=== PATIENT | male | born 1940 | race Caucasian/White ===

== ENCOUNTER 2018-08-12 13:04 | Inpatient (IN) | payer MEDICARE, OTHER ==
[~2018-08-12] VITALS: Ht 167.6 cm; Wt 65.3 kg
[2018-08-12 14:45] LABS: Hematocrit 19.9 % (41.0-53.0); Mean Corpuscular Hemoglobin 33.7 pg (28.0-32.0); Mean Corpuscular Volume 108.6 fL (80.0-100.0); Platelet Count (auto) 97 10^3/uL (140-450); Red Blood Cells 1.83 10^6/uL (4.5-5.90); White Blood Cell 2.8 10^3/uL (4.4-10.8)
[2018-08-12 14:52] LABS: Red Cell Distribution Width 22.6 % (11.8-14.3)
[2018-08-12 14:55] LABS: Hemoglobin 6.2 g/dL (13.5-17.5)
[2018-08-12 14:57] LABS: Basophils % (manual) 0 (0.0-2.0); Blast Cells 0; Eosinophils % (manual) 0 (0-7); Metamyelocytes % 0; Myelocytes % 0; Promyelocytes % 0; Reactive Lymphocytes 0
[2018-08-12 15:04] LABS: Chloride 103 mmol/L (98-107); Potassium 3.4 mmol/L (3.5-5.1); Sodium 136 mmol/L (136-145)
[2018-08-12 15:07] LABS: Albumin 3.2 g/dL (3.4-5.0); Anion Gap 14 (5-15); BUN/Creatinine Ratio 24.3; Blood Urea Nitrogen 26 mg/dL (7-18); Calcium 7.8 mg/dL (8.5-10.1); Carbon Dioxide 19 mmol/L (21-32); GFR African American 86 mL/min; GFR Non-African American 71 mL/min; Glucose 106 mg/dL (74-106)
[2018-08-12 15:22] LABS: Alanine Aminotransferase 248 U/L (16-61); Alkaline Phosphatase 128 U/L (45-117); Aspartate Aminotransferase 198 U/L (15-37); Bilirubin, Total 1.1 mg/dL (0.2-1.0); Total Protein 6.8 g/dL (6.4-8.2)
[2018-08-12] MEDS ORDERED: HYDROcodone-ACET 5/325MG TAB PO PRN (16:15)
[2018-08-12] MEDS ORDERED: ASPirin 81 mg TAB PO ONE (16:15)
[2018-08-12] MEDS ORDERED: ACETAMINOPHEN 500 MG TAB PO PRN (16:15)
[2018-08-12] MEDS ORDERED: ONDANSETRON HCL 4 MG/2 ML VIAL IV PRN (16:15)
[2018-08-12] MEDS ORDERED: MORPHINE SULF INJ 2 MG/ML SYRINGE 1ML IV PRN (16:15)
[2018-08-12] MEDS ORDERED: NITROGLYCERIN 0.4 MG SL TAB SL PRN (16:15)
[2018-08-12] MEDS ORDERED: POLYETHYLENE GLYCOL 17 GM PWDR PO PRN (16:15)
[2018-08-12] MEDS ORDERED: SODIUM CHLORIDE 0.9% 500 ML IV ONE (16:15)
[2018-08-12] MEDS: cefTRIAXone 1GM/50ML D5W 50 ML IV SCH (16:30)
[2018-08-12] MEDS: AZITHROMYCIN 500MG/ 250ML 250 ML IV SCH (16:30)
[2018-08-12] MEDS ORDERED: POTASSIUM CHLORIDE 20 MEQ, LIDOCAINE 1% (LOCAL ANESTH.) 2 ML in SODIUM CHL 0.9% 100 ML IV ONE (16:30)
[2018-08-12 17:11] VITALS: BP 134/92
[2018-08-12 17:19] LABS: CRP High Sensitivity 1.89 mg/dL (< 0.3)
[2018-08-12] MEDS: ALBUTEROL SULF 2.5 MG/0.5ML(0.5%) NEB SOLN NEB SCH (18:00)
[2018-08-12] MEDS: IPRATROPIUM BROM 0.5 MG/2.5ML INH SOL NEB SCH (18:00)
[2018-08-12 18:25] LABS: Band Neutrophils % (manual) 5; Lymphocytes % (manual) 17 (10.0-50.0); Monocytes % (manual) 7 (0-12)
[2018-08-12 19:50] VITALS: BP 136/89
[2018-08-12 20:05] VITALS: BP 131/95
[2018-08-12 22:00] VITALS: BP 141/90
[2018-08-12] MEDS ORDERED: METOPROLOL TARTRATE 25 MG TAB PO SCH (22:00)
[2018-08-12] MEDS ORDERED: ATORVASTATIN 20 MG TAB PO SCH (22:00)
[2018-08-12] MEDS: CARVEDILOL 12.5 MG TAB PO SCH (22:16)
[2018-08-12] MEDS: DOCUSATE SOD 100 MG CAP PO SCH (22:16)
[2018-08-13] VITALS (8 sets, daily range): BP systolic 100–116; BP diastolic 51–70
--- NOTE | 2018-08-13 00:15 | NUR ---
Admit to [facility]mitted to [facility] via gurney on environmental monitoring specialist, and portable 02. Patient transferred to bed, connected to unit monitoring and oxygen, and [facility] Patient oriented to Kim zendejas RN, unit, room, bed, and unit policies regarding patient care and POC. All questions and concerns addressed, patient verbalized understanding. NOTE: COMPLETE PHYSICAL ASSESSMENT DONE: SEE INTERVENTIONS. PATIENT HAS OWN ROLLING WALKER AT BEDSIDE. INSTRUCTED PATIENT NOT TO GET OUT OF BED WITHOT ASSISSTANCE, PATIENT VERBALIZED UNDERSTANDING. CALL LIGHT GIVEN TO PATIENT AND FALL PRECAUTIONS INITIATED.
--- NOTE | 2018-08-13 04:26 | NUR ---
ROUNDS PATIENT RESTING IN BED WITH NO S/S OF DISTRESS , SOB OR PAIN. VSS: SEE IV SPREADSHEET. CALL LIGHT WITHIN EASY REACH. CONTINUE MONITORING.
--- NOTE | 2018-08-13 06:00 | NUR ---
12 lead ekg done and placed in patient hard chart
[2018-08-13] MEDS: ALBUTEROL SULF 2.5 MG/0.5ML(0.5%) NEB SOLN NEB SCH ×2 (06:17→11:40)
[2018-08-13] MEDS: IPRATROPIUM BROM 0.5 MG/2.5ML INH SOL NEB SCH ×2 (06:17→11:40)
[2018-08-13] MEDS: FUROSEMIDE 40 MG/4 ML VIAL IV SCH ×2 (06:22→18:00)
[2018-08-13 06:29] LABS: Albumin 2.9 g/dL (3.4-5.0); Calcium 7.7 mg/dL (8.5-10.1); Potassium 3.8 mmol/L (3.5-5.1)
[2018-08-13 06:34] LABS: BUN/Creatinine Ratio 26.4; Bilirubin, Total 1.4 mg/dL (0.2-1.0); Total Protein 5.6 g/dL (6.4-8.2)
[2018-08-13 06:42] LABS: Mean Corpuscular Volume 103.2 fL (80.0-100.0)
[2018-08-13 06:44] LABS: Hematocrit 19.7 % (41.0-53.0); Platelet Count (auto) 69 10^3/uL (140-450); Red Blood Cells 1.91 10^6/uL (4.5-5.90)
[2018-08-13 07:12] LABS: Hemoglobin 6.3 g/dL (13.5-17.5); Red Cell Distribution Width 26.1 % (11.8-14.3)
--- NOTE | 2018-08-13 07:12 | NUR ---
SPOKE WITH LUIS E ROMERO OVER THE PHONE REGARDING HGB THIS AM TELEPHONE ORDER READ BACK AND VERIFIED TO TRANSFUSE ONE UNIT PRBC
[2018-08-13] MEDS: DOCUSATE SOD 100 MG CAP PO SCH ×2 (09:26→20:22)
[2018-08-13] MEDS: CARVEDILOL 12.5 MG TAB PO SCH (09:29)
[2018-08-13] MEDS: AZITHROMYCIN 500MG/ 250ML 250 ML IV SCH (09:29)
[2018-08-13] MEDS: cefTRIAXone 1GM/50ML D5W 50 ML IV SCH (09:29)
[2018-08-13 09:30] LABS: Basophils % (manual) 0 (0.0-2.0); Blast Cells 0; Myelocytes % 0; Promyelocytes % 0; Reactive Lymphocytes 0
[2018-08-13 09:33] LABS: Band Neutrophils % (manual) 10; Eosinophils % (manual) 1 (0-7); Lymphocytes % (manual) 19 (10.0-50.0); Metamyelocytes % 1; Monocytes % (manual) 5 (0-12)
[2018-08-13 09:46] LABS: White Blood Cell 1.4 10^3/uL (4.4-10.8)
--- NOTE | 2018-08-13 09:46 | NUR ---
CRITICAL RESULT WBC 1.4 RECEIVED. 0905 MD GOMEZ AT BEDSIDE, INFORMED ABOUT CRITICAL LAB VALUE. UPDATED ABOUT PATIENT STATUS.
[2018-08-13] MEDS ORDERED: ASPirin-EC 81 mg tab PO SCH (10:00)
[2018-08-13] MEDS ORDERED: FAMOTIDINE 20 MG TAB PO SCH (10:00)
[2018-08-13] MEDS ORDERED: LISINOPRIL 5 MG TAB PO SCH (10:00)
[2018-08-13 11:37] LABS: INR 1.02 (0.9-1.15); Partial Thromboplastin Time 26.3 sec (23.64-32.05)
[2018-08-13] MEDS ORDERED: CAR125T PO (12:09)
[2018-08-13] MEDS ORDERED: POTA10TA51 PO (12:09)
[2018-08-13] MEDS ORDERED: ALB5IS NEB (12:09)
[2018-08-13] MEDS ORDERED: LISI-275 PO (12:09)
[2018-08-13] MEDS ORDERED: ATOR20TA50 PO (12:09)
[2018-08-13] MEDS ORDERED: ASP81EC PO (12:09)
[2018-08-13] MEDS ORDERED: NITR0.4S29 SL (12:09)
[2018-08-13] MEDS ORDERED: IPR002IS NEB (12:09)
[2018-08-13] MEDS ORDERED: FURO40TA PO (12:09)
--- NOTE | 2018-08-13 12:12 | NUR ---
ONE UNIT PRBC TRANSFUSING PATIENT ALERT AND ORIENTED X4, NO DISTRESS NOTED, RESPIRATIONS EVEN AND UNLABORED, PATIENT CURRENTLY ON 2 LITERS OF OXYGEN VIA NASAL CANNULA. DISCUSSED S/S TO MONITOR DURING TRANSFUSION WITH PATIENT, PATIENT VERBALIZED UNDERSTANDING. VSS AND DOCUMENTED. WILL MONITOR PATIENT DURING TRANSFUSION.
--- NOTE | 2018-08-13 12:25 | NUR ---
CALL RECEIVED FROM DR CHU REVIEWED DISCHARGE ORDERS WITH THIS NURSE. PER DR CHU "CONTACT [facility] AND HAVE SOMEONE COME AND MEET WITH PATIENT TO DISCUSS DISCHARGE NEEDS - HOME O2 AND TRANSPORTATION". REGARDING BLOOD TRANSFUSION, DR CHU AWARE THAT ONE UNIT PRBC IS BEING TRANSFUSED NOW, DOCTOR NOTIFIED THIS NURSE THAT HE DOES NOT WANT A REPEAT H&H AND PATIENT CAN BE DISCHARGED AFTER TRANSFUSION AND ONCE [facility] HAS DISCUSSED DISCHARGE PLANS WITH PATIENT. CHARGE NURSE CARLOS NOTIFIED.
--- NOTE | 2018-08-13 12:27 | NUR ---
15 MINUTE TRANSFUSION REASSESSMENT VSS AND DOCUMENTED. PATIENT DENIES ANY PAIN OR DISCOMFORT OR S/S OF TRANSFUSION REACTION. WILL CONTINUE TO MONITOR.
--- NOTE | 2018-08-13 12:54 | NUR ---
SUPERVISOR [employer]ER [employer] CONTACT MESSAGE LEFT FOR NIHARIKA, REGARDING DR CHU'S REQUEST FOR [facility] CONTACT TO COME AND DISCUSS DISCHARGE PLAN WITH PATIENT, AWAITING RESPONSE.
--- NOTE | 2018-08-13 13:25 | NUR ---
FAXED ss consult to [facility]. I also called and had to leave message
--- NOTE | 2018-08-13 14:38 | NUR ---
HOME HEALTH AT BEDSIDE PATIENT CONVERSING WITH HOME HEALTH WAREHOUSE SPECIALIST APPROPRIATELY. TRANSFUSION CONTINUES, NO S/S NOTED OR REPORTED BY PATIENT OF TRANSFUSION REACTION. PATIENT NOTIFIED THIS NURSE THAT HE DROVE HIS OWN VEHICLE TO THE HOSPITAL AND WOULD LIKE TO DRIVE HIS SENIOR CARE, HOME HEALTH WAREHOUSE SPECIALIST AWARE AND STATED IT WAS OK "I WILL MEET PATIENT AT HIS HOME". HAL ACMACHO RN OF [facility] REQUESTING TO BE NOTIFIED ONCE PATIENT IS DISCHARGED .
[2018-08-13] MEDS ORDERED: FUROSEMIDE 20 MG/2 ML VIAL IV ONE (15:00)
--- NOTE | 2018-08-13 15:58 | NUR ---
TRANSFUSION COMPLETED VSS AND DOCUMENTED. NO S/S OF TRANSFUSION REACTION NOTED OR REPORTED BY PATIENT. PATIENT DENIES ANY PAIN OR DISCOMFORT AT THIS TIME.
--- NOTE | 2018-08-13 16:00 | NUR ---
PHONE CALL FROM MELANY LUNA UPDATED THAT PATIENT CANNOT DRIVE HOME. MD CHU WANTS PATIENT TO BE TRANSPORTED HOME. [facility] 08/14/18 BY [facility].
--- NOTE | 2018-08-13 16:04 | NUR ---
RECEIVED PHONE CALL MARC FROM [facility] CALLED TRYING TO DELIVER OXYGEN EQUIPMENT. UPDATED ON PLAN OF DISCHARGE. GAVE PHONE NUMBER TO HAL WITH [facility] FOR FURTHER QUESTIONS.
--- NOTE | 2018-08-13 18:26 | NUR ---
PATIENT CAR TAKEN HOME/AWAITING TRANSPORT HOME HEALTH MATERIALS PLANNER/PRODUCTION PLANNER HAL AT BEDSIDE TO TAKE PATIENT'S CAR HOME. AWAITING ARRANGED TRANSPORTATION FOR PATIENT. HOME OXYGEN DELIVERED TO BEDSIDE WELL. PATIENT ATTEMPTING TO HAVE BOWEL MOVEMENT WITH NO SUCCESS. PRUNE JUICE ORDERED STAT. WILL PAGE MD TO NOTIFY.
--- NOTE | 2018-08-13 18:43 | NUR ---
CONSTIPATION/CONTACT HOSPITALIST PATIENT REPORTING UNABLE TO HAVE A BOWEL MOVEMENT AND "FEELS LIKE IT IT STUCK, IF I ONLY HAD A SUPPOSITORY IT WILL HELP COME OUT". SPOKE WITH DR CHU TO NOTIFY OF PATIENT COMPLAIN AND ETA FOR HOME TRANSPORT 1929. ORDERS FOR FLEET ENEMA RECEIVED FROM DR CHU.
[2018-08-13] MEDS ORDERED: FLEET ENEMA(ADULT) 135 ML PR ONE (19:00)
--- NOTE | 2018-08-13 19:37 | NUR ---
END OF SHIFT NOTE PATIENT SITTING IN TOILET ATTEMPTING A BOWEL MOVEMENT AFTER ADMINISTERING FLEET ENEMA ORDERED BY MD. PATIENT ALERT AND ORIENTED X4, NO DISTRESS NOTED, RESPIRATIONS EVEN AND UNLABORED. AWAITING TRANSPORTATION. HR 80, RR 25 ON 2 LITERS NASAL CANNULA. ENDORSED CONTINUED CARE AND DISCHARGE COMPLETION TO RECEIVING RN.
--- NOTE | 2018-08-13 20:27 | NUR ---
Discharge home Discharge instructions given as ordered. Encourage to follow up with PMD as instructed. All questions and concerns addressed. Patient verbalized understanding. IV removed with catheter intact, pressure dressing applied. Patient taken to vehicle via wheelchair with all personal belongings(clothes, wheelchair and oxygen tank) by unemployment insurance director, accompanied by staff. No distress noted at time of departure. Addendum: 08/13/18 at 2040 by Kenneth Espinoza RN patient requested one more stool softener.colace 100mg po given now (due at 2200)
== END 2018-08-13 20:44 | disposition home health service (06) | DRG 280 ==
LOC: ER 13:04 → TELE 13:05 → DOU IN ICU 23:23
PROVIDERS: ADMIT Nurse Practitioner Acute Care; ATTEND Internal Medicine
PROC: 30233N1 Transfusion of Nonautologous Red Blood Cells into Peripheral Vein, Percutaneous Approach (ICD-10-PCS; principal; 2018-08-12)
DX: I21.4 Non-ST elevation (NSTEMI) myocardial infarction (principal); J18.9 Pneumonia, unspecified organism; I50.21 Acute systolic (congestive) heart failure; I13.0 Hypertensive heart and chronic kidney disease with heart failure and stage 1 through stage 4 chronic kidney disease, or unspecified chronic kidney disease; D61.818 Other pancytopenia; E44.1 Mild protein-calorie malnutrition; I42.9 Cardiomyopathy, unspecified; N18.3 Chronic kidney disease, stage 3 (moderate); E87.6 Hypokalemia; D46.9 Myelodysplastic syndrome, unspecified; F17.200 Nicotine dependence, unspecified, uncomplicated; I71.4 Abdominal aortic aneurysm, without rupture; K59.00 Constipation, unspecified; K80.20 Calculus of gallbladder without cholecystitis without obstruction; N20.0 Calculus of kidney; M19.90 Unspecified osteoarthritis, unspecified site; N40.0 Benign prostatic hyperplasia without lower urinary tract symptoms; Q90.9 Down syndrome, unspecified; Z68.23 Body mass index [BMI] 23.0-23.9, adult; Z79.899 Other long term (current) drug therapy
CPT/HCPCS: 36415; 36430; 71045; 74176; 80053; 80061; 83010; 83615; 83735; 83880; 84484; 85007; 85025; 85027; 85045; 85610; 85730; 86141; 86850; 86880; 86900; 86901; 86920; 87040; 93005; 93306; 94640; 96365; 96368; 99291; G0378; J0696; J2001